=== PATIENT | male | born 1930 | race Caucasian/White ===

== ENCOUNTER → 2016-12-09 | Outpatient (CLI) | payer MEDICARE ==
--- NOTE | 2016-12-09 13:07 | RAD ---
Indication history of prostate malignancy. Whole body static images were obtained. 25 mCi of technetium labeled MDP was administered. Note is made of a previous examination 04/02/2015. There is now, in contrast to the previous examination an isolated focus of increased activity in the right hip in the intertrochanteric distribution. Review of the CT images of the pelvis, obtained the same day, demonstrate a small sclerotic focus corresponding to the area of increased activity on bone scan. The sclerotic focus is new when compared to a CT examination 04/02/2015. While somewhat unusual a solitary focus of metastatic disease would be the leading consideration. No additional area of abnormal uptake is seen apart from some degenerative activity in the right elbow, hands and ankles. IMPRESSION: Solitary focus of increased activity in the right hip corresponding to a mildly sclerotic focus on CT. Isolated metastatic disease is the leading consideration
--- NOTE | 2016-12-09 14:04 | RAD ---
CT scan of the chest, abdomen and pelvis without contrast 12/09/2016 Clinical history: Prostate cancer with rising PSA. Technique: After the oral administration of contrast only, contiguous, 5 mm axial sections were obtained through the chest, abdomen and pelvis. One or more of the following individualized dose reduction techniques were utilized for this study: 1. Automated exposure control. 2. Adjustment of the mA and/or kV according to patient size. 3. Use of iterative reconstruction technique. Findings: Comparison study is dated 04/02/2015. Scattered atherosclerotic plaque formation is seen involving the thoracic aorta and its branches. The thoracic aorta is tortuous but tapers normally. The heart is borderline enlarged. No hilar, mediastinal or axillary lymphadenopathy is seen. Dependent subsegmental atelectasis is seen involving both lungs. No area of consolidation is seen. No pneumothorax or pleural effusion is noted. A 4 mm nodular opacity is seen involving the inferior aspect the left lower lobe, unchanged. No new pulmonary nodule seen. The liver, spleen, pancreas, adrenal glands and kidneys are within normal limits. Moderate atherosclerotic calcification of the abdominal aorta is seen. The abdominal aorta tapers normally. There is no evidence of bowel obstruction. The gallbladder is slightly contracted. Air and stool is seen throughout the colon. Multiple diverticula are seen involving the descending colon. No inflammatory changes are seen in the adjacent fat. No retroperitoneal lymphadenopathy is seen. A 6.5 cm low-attenuation mass is seen in the mesentery within the right lower quadrant abdomen inferior to the cecum. It is unchanged in appearance since the previous examination. It may represent a mesenteric cyst. Images through the pelvis demonstrate the urinary bladder distended with urine. The prostate gland is mildly enlarged. Calcifications are seen within the pelvis consistent with phleboliths. No free fluid is seen. No pelvic or inguinal lymphadenopathy is seen. Mild S-shaped curvature of the thoracic and lumbar spine is seen. Degenerative changes are seen involving the thoracic and lumbar spine. Impression: There is no definite CT evidence of metastatic disease involving the chest, abdomen or pelvis.
== END | disposition home or self-care (01) ==
LOC: NM 13:06
PROVIDERS: ATTEND Internal Medicine Hematology & Oncology
DX: C61 Malignant neoplasm of prostate (principal); R53.83 Other fatigue; R97.20 Elevated prostate specific antigen [PSA]; Z85.46 Personal history of malignant neoplasm of prostate; Z85.89 Personal history of malignant neoplasm of other organs and systems
CPT/HCPCS: 71250; 74176; 78306; 96374; A9503